=== PATIENT | male | born 1990 | race Caucasian/White ===

== ENCOUNTER → 2020-10-07 | Outpatient (CLI) | payer SELFPAY ==
[~2020-10-07] MED LIST: CEPH500 PO; HYDACE5 PO; RXCEPH500 PO; RXHYDACE PO; SULTRIDS PO; SULTRISS PO
== END | disposition home or self-care (01) ==
LOC: LAB 10:39
DX: L08.9 Local infection of the skin and subcutaneous tissue, unspecified (principal)
CPT/HCPCS: 87070; 87075; 87147; 87205

== ENCOUNTER 2022-08-03 08:56 | Day surgery (SDC) | payer OTHER ==
[~2022-08-03] VITALS: Ht 172.7 cm; Wt 78.6 kg
--- NOTE | 2022-08-03 10:39 | NUR ---
08/03/22 1039 JUSTIN DOMINGUEZ PRE OP FEMORAL BLOCK PERFORMED, ASSISTING DR. AGRAWAL. PT O2 SATS 97-99% T/O PROCEDURE. NO ADVERSE EVENT. PT TO OR
--- NOTE | 2022-08-03 11:01 | NUR ---
08/03/22 1101 Pranav Reza 1 MG EPI ADDED TO EACH OF THE FIRST 3 BAGS OF LR [facility]
== END 2022-08-03 14:08 | disposition home or self-care (01) ==
LOC: ORSCSDS 08:56
PROVIDERS: Orthopaedic Surgery
PROC: 0MRN47Z Replacement of Right Knee Bursa and Ligament with Autologous Tissue Substitute, Percutaneous Endoscopic Approach (ICD-10-PCS; principal; 2022-08-03 10:10)
DX: S83.511A Sprain of anterior cruciate ligament of right knee, initial encounter (principal); S83.241A Other tear of medial meniscus, current injury, right knee, initial encounter; M94.261 Chondromalacia, right knee
CPT/HCPCS: A9270; C1713; C1762; J0171; J0690; J1100; J2250; J2405; J2704; J2795; J3010; J7120